=== PATIENT | male | born 1985 | race African-American/Black ===

== ENCOUNTER 2019-10-24 22:14 | Emergency (ER) | payer MEDICAID ==
[~2019-10-24] VITALS: Ht 172.7 cm; Wt 71.0 kg
[2019-10-24] MEDS ORDERED: TETANUS, DIPHTHERIA, PERTUSSIS VAC/PF 0.5ML (>7YR OLD) IM ONE (23:00)
[2019-10-24 23:51] VITALS: BP 124/80
== END 2019-10-24 23:56 | disposition home or self-care (01) ==
LOC: ER 22:14
DX: S61.210A Laceration without foreign body of right index finger without damage to nail, initial encounter (principal); F12.10 Cannabis abuse, uncomplicated; W26.0XXA Contact with knife, initial encounter; Y93.89 Activity, other specified; Y92.018 Other place in single-family (private) house as the place of occurrence of the external cause
CPT/HCPCS: 12001; 90471; 90715; 99283

== ENCOUNTER 2019-10-27 14:23 | Emergency (ER) | payer MEDICAID ==
[~2019-10-27] VITALS: Ht 172.7 cm; Wt 87.0 kg
[2019-10-27] MEDS ORDERED: BACITRACIN ZINC OINT UDPKT TOP ONE (15:30)
[2019-10-27 15:54] VITALS: BP 124/86
== END 2019-10-27 16:00 | disposition home or self-care (01) ==
LOC: ER 14:23
DX: Z48.00 Encounter for change or removal of nonsurgical wound dressing (principal)
CPT/HCPCS: 99281

== ENCOUNTER 2019-12-01 02:48 | Emergency (ER) | payer MEDICAID | END 2019-12-01 03:43 | disposition left against medical advice (07) | LOC: ER 02:48 | DX: Z53.21 Procedure and treatment not carried out due to patient leaving prior to being seen by health care provider (principal) ==